=== PATIENT | female | born 1980 | race Caucasian/White ===

== ENCOUNTER 2017-05-26 14:07 | Emergency (ER) | payer OTHER ==
[~2017-05-26] VITALS: Ht 162.6 cm; Wt 66.5 kg
[~2017-05-26 14:07] MED LIST: ALBU18HF INH; ALPR0.5T PO; CITA20TA11 PO; LORA-302 PO
[2017-05-26 14:15] VITALS: BP 153/94; PULSE 114; RESP 20; O2SAT 97
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
[2017-05-26] MEDS ORDERED: Ciprofloxacin-Dexamethasone 7.5 mL Otic Susp LEFT_EAR ONE (14:55)
[2017-05-26 15:45] VITALS: BP 132/77; PULSE 115; RESP 16; O2SAT 98
[2017-05-26] MEDS ORDERED: CIPRODEX AFFECT_EAR (15:46)
[2017-05-26] MEDS ORDERED: CEPH-512 PO (15:49)
[2017-05-26 15:55] VITALS: BP 132/77; PULSE 115; RESP 16; O2SAT 98
== END 2017-05-26 15:56 | disposition home or self-care (01) ==
LOC: SED 14:07
DX: H60.392 Other infective otitis externa, left ear (principal); L73.9 Follicular disorder, unspecified; F17.200 Nicotine dependence, unspecified, uncomplicated; Z90.710 Acquired absence of both cervix and uterus; Z88.0 Allergy status to penicillin; Z88.5 Allergy status to narcotic agent